=== PATIENT | male | born 1955 | race Caucasian/White ===

== ENCOUNTER 2016-12-19 05:58 | Emergency (ER) | payer BC ==
[2016-12-19] MEDS ORDERED: Albuterol 2.5 MG/3 ML NEB.SOL* (0.083%) INH ONE (06:58)
--- NOTE | 2016-12-19 07:18 | ED ---
Respiratory - HPI Summary HPI Summary: 61M w/ PMH of CHF, DM, and HTN presents with cough for 10 days. States that sinus congestion makes it hard to breath when it drips down his throat. He states he seems to choke on his nasal congestion. He denies any chest pain. He states that he is SOB when he coughs. He denies any increase in edema of his legs. He states his has similar symptoms. He denies any fever or abdominal pain. He has been using sudafed without relief which he was advised against using due to DM. He has no history of COPD or asthma. - History of Current Complaint Chief Complaint: EDUpperRespComplaint Stated Complaint: SOB Time Seen by Provider: 12/19/16 06:34 Pain Intensity: 3 Sputum Amount: None - Allergy/Home Medications Allergies/Adverse Reactions: Allergies Allergy/AdvReac Type Severity Reaction Status Date / Time No Known Allergies Allergy Verified 12/19/16 06:06 PMH/Surg Hx/FS Hx/Imm Hx Endocrine/Hematology History: Reports: Hx Diabetes Cardiovascular History: Reports: Hx Hypercholesterolemia, Hx Hypertension Denies: Hx Angina, Hx Congestive Heart Failure, Hx Coronary Artery Disease, Hx Myocardial Infarction, Hx Valvular Heart Disease Respiratory History: Reports: Hx Sleep Apnea, Other Respiratory Problems/ Disorders - sleep apnea History: Reports: Hx Kidney Stones - 2 episodes - last 1 year ago Denies: Hx Renal Disease Sensory History: Reports: Hx Contacts or Glasses, Hx Vision Problem - wears glasses Opthamlomology History: Reports: Hx Contacts or Glasses, Hx Vision Problem - wears glasses - Surgical History Surgery Procedure, Year, and Place: nose reconstruction cspine bulging disc surgery Hx Anesthesia Reactions: No Infectious Disease History: No Infectious Disease History: Denies: Traveled Outside the [place] in Last 30 Days - Family History Known Family History: Positive: Hypertension - Social History Alcohol Use: Rare Substance Use Type: Reports: None Smoking Status (MU): Never Smoked Tobacco Type: Cigarettes Amount Used/How Often: 3/4 pack per day Length of Time of Smoking/Using Tobacco: 45 Have You Smoked in the Last Year: Yes Review of Systems Negative: Fever Positive: Sore Throat, Nasal Discharge Negative: Chest Pain Positive: Shortness Of Breath, Cough Negative: Abdominal Pain All Other Systems Reviewed And Are Negative: Yes Physical Exam Triage Information Reviewed: Yes Vital Signs On Initial Exam: Initial Vitals Temp Pulse Resp BP Pulse Ox 97.7 F 70 18 155/86 97 12/19/16 06:00 12/19/16 06:00 12/19/16 06:00 12/19/16 06:00 12/19/16 06:00 Vital Signs Reviewed: Yes Appearance: Positive: Well-Appearing Skin: Positive: Warm, Dry Head/Face: Positive: Normal Head/Face Inspection Eyes: Positive: Normal, Conjunctiva Clear ENT: Positive: Normal ENT inspection, Pharynx normal, Nasal congestion, Nasal drainage, TMs normal Respiratory/Lung Sounds: Positive: Breath Sounds Present, Wheezes - inspiratory and expiratory wheezes, Other - positive egophony Cardiovascular: Positive: Normal, RRR Musculoskeletal: Positive: Edema Left - up to calf, Edema Right - up to calf - Diya Coma Scale Coma Scale Total: 15 Diagnostics - Vital Signs Vital Signs Temp Pulse Resp BP Pulse Ox 12/19/16 07:11 24 12/19/16 07:10 68 12 98 12/19/16 06:00 97.7 F 70 18 155/86 97 - Laboratory Lab Statement: Any lab studies that have been ordered have been reviewed, and results considered in the medical decision making process. - Radiology chest Xray Interpretation: Positive (See Comments) - IMPRESSION: Cardiomegaly. Interstitial edema consistent with CHF is noted. Radiology Interpretation Completed By: Radiologist Disposition - Course Course Of Treatment: 61M presents with cough and nasal congestion for 10 days. states that when nasal congestion drips down throat has SOB. denies any chest pain or increase edema in legs. has been taking sudafed for nasal congestion. has similiar symptoms. on exam nasal congestion present. lungs positive egophony and inspiratory vs expiratory wheezes. pitting edema of lower legs present that states is baseline with CHF. xray shows cardiomegaly and CHF, due to positive egophony and some improvement with nebulizer treatment of wheezing while treat as pneumonia. patient understands and agrees with plan - Differential Dx - Cardiopulmonary Differential Diagnoses - Cardiopulmonary: Bronchitis, CHF, Lower Resp Infection - Diagnoses Provider Diagnoses: Pneumonia Discharge - Discharge Plan Condition: Good Disposition: HOME Prescriptions: Albuterol HFA INHALER* [Ventolin HFA Inhaler*] 1 puff INH Q4H PRN #1 mdi PRN Reason: Cough Azithromycin TAB* [Zithromax TAB (Z-FOUZIA) 250 mg #6 tabs] 250 mg PO DAILY #4 tab Benzonatate CAP* [Tessalon 100 MG CAP*] 100 mg PO TID #21 cap Fluticasone NASAL SPRAY 50MCG* [Flonase NASAL SPRAY 50MCG*] 2 spray BOTH NARES DAILY #1 btl Patient Education Materials: Pneumonia (ED) Forms: *Work Release Referrals: Ruperto BUENROSTRO,Johnny Lee [Primary Care Provider] - Additional Instructions: Take antibiotic once a day starting tomorrow, first dose given in ED today Use Tessalon three times a day for cough Use inhaler one puff every 4 hours for cough as needed Use flonase one spray each nostril twice a day for nasal congestion Use saline in the nose for nasal congestion as much as needed Use humidifier or place warm bowls of water around the room for cough Take Tylenol and ibuprofen for pain every 6 hours Follow up with primary within 7 days if no improvement Return to ED if develop chest pain , shortness of breath, or any new or worsening symptoms
[2016-12-19] MEDS ORDERED: Azithromycin TAB* 250 MG PO ONE (07:43)
[2016-12-19 07:57] VITALS: BP 152/81
--- NOTE | 2016-12-19 08:08 | RAD ---
Indication: Cough. 2 views of the chest including dual energy PA views demonstrates hyperinflated lung bennett. Bibasilar atelectasis is noted. Interstitial edema consistent with CHF is noted. When compared to previous exam of January 27, 2014. Interstitial edema is increased. IMPRESSION: Cardiomegaly. Interstitial edema consistent with CHF is noted.
== END 2016-12-19 07:56 | disposition home or self-care (01) ==
LOC: ED 05:58
DX: J18.9 Pneumonia, unspecified organism (principal); F17.210 Nicotine dependence, cigarettes, uncomplicated; E11.9 Type 2 diabetes mellitus without complications; E78.00 Pure hypercholesterolemia, unspecified; I10 Essential (primary) hypertension; I50.9 Heart failure, unspecified
CPT/HCPCS: 71020; 94640; 99282; A9270-GY